=== PATIENT | female | born 1980 | race Caucasian/White ===

== ENCOUNTER 2016-06-30 16:00 | Observation (INO) | payer MEDICAID ==
[~2016-06-30] VITALS: Ht 167.6 cm; Wt 176.9 kg
--- NOTE | ~2016-06-30 | HP ---
ADMIT: 06/30/2016 RM/LOC: 509 [facility] MR#: [id number] [facility]#: [id number] [address] [address] INDRA DE LOS SANTOS [address] [place] [address] History and Physical SEX: F AGE: 35 : 1980 DATE OF SERVICE: CHIEF COMPLAINT/HISTORY OF PRESENT ILLNESS: This 35-year-old female is admitted to the hospital for increasing dyspnea. The patient is a long- standing asthmatic for which she takes Spiriva, DuoNeb twin jet nebulizer treatments, another inhaler, but no steroids. She has had an increasing cough lately. No hemoptysis. She has had worsening dyspnea. She had numerous hospital admissions for asthma and she is not a smoker. MEDICATIONS: Her other medications include: 1. Proventil inhaler. 2. Zyrtec. 3. Actos. 4. Celexa. PREVIOUS MEDICAL HISTORY: Generally, her health has been fair. She has had marked obesity. She also has type 2 diabetes mellitus for which she takes Actos. She has a history of depression. C-sections. SOCIAL HISTORY: The patient does not smoke. She works at [employer]. ALLERGIES: NO MEDICAL ALLERGIES. HOWEVER, SHE DOES NOT TOLERATE METFORMIN, IT CAUSES HER TO HAVE BLURRY VISION. REVIEW OF SYSTEMS: HEENT: The patient wears glasses. There is no history of diabetic retinopathy. CARDIORESPIRATORY: The patient has longstanding asthma, but no pneumonia. She has taken steroids in the past for her asthma. There has been no history of hypertension or chest pains. GI: No nausea, vomiting, bloody stools, or diarrhea. : No hematuria or dysuria. METABOLIC/ENDOCRINE: The patient has type 2 diabetes mellitus and takes Actos for this. The patient has morbid obesity. NEUROPSYCHIATRIC: The patient has a history of depression. PHYSICAL EXAMINATION: VITAL SIGNS: Initial blood pressure is 141/64, heart rate is 102 and regular, respirations 20, and temperature 98.2. GENERAL: The patient is a morbidly obese female who is alert, cooperative, oriented x3. HEENT: There is no cyanosis. The patient wears glasses. NECK: Veins are not distended. CHEST: Has occasional wheezing and occasional rales. No rhonchi are heard. HEART: Has an increased heart rate. No murmurs are heard. No evidence of cardiomegaly is present clinically. ADMIT: 06/30/2016 RM/LOC: 509 [facility] MR#: [id number] [address] [address] INDRA DE LOS SANTOS [address] [place] [address] History and Physical SEX: F AGE: 35 : 1980 ABDOMEN: Soft, nontender. Markedly protuberant. Liver is not enlarged. Spleen is not palpable. No abnormal masses are palpated. Femoral pulses are strong and equal bilaterally. GENITALIA: Deferred. EXTREMITIES: There is no cyanosis, clubbing, or edema. ASSESSMENT: 1. Acute on chronic asthma with hypoxemia. 2. Type 2 diabetes mellitus. 3. History of depression. PLAN: Intravenous steroids and increase her nebulizer treatments. Fernando Ching MD/ anne JOB #: [id number] CC: Fernando Ching, Attending Physician Abby Amado, Family Physician
[~2016-06-30 16:00] MED LIST: ACTOS DPS30 MG PO; ADVAIR DIS1 PUFF/DO1 IH; ASMANEX1 INH IH; DELTASONE DPS20 MG PO; DULERA 200/58.8 GM IH; DUONEB DPS3 ML IH; EFFEXOR XR37.5 M1 PO; MONTELUKAST SOD10 MG PO; PROVENTIL HFA6.7 GM IH; PULMICORT1 MG/2 ML IH; ZITHROMAX250 MG PO; ZYRTEC DPS10 MG PO
[2016-07-04] MEDS ORDERED: CELEXA DPS20 MG PO (14:19)
[2016-07-04] MEDS ORDERED: DELTASONE DPS10 MG PO (14:20)
[2016-07-04] MEDS ORDERED: CEFTIN DPS500 MG PO (14:20)
[2016-07-04] MEDS ORDERED: ZANTAC DPS150 MG PO (14:20)
--- NOTE | 2016-07-08 09:05 | ER ---
ADMIT: 06/30/2016 RM/LOC: 509 [facility] MR#: [id number] [id number] [place], [place] [address] IDNRA DE LOS SANTOS [address] [place] [address] Emergency Room Report SEX: F AGE: 35 : 1980 DATE: 06/30/2016 TIME: 1600 Please refer to my T-sheet for complete H and P. HISTORY OF PRESENT ILLNESS: Briefly, the patient is a 35-year-old who comes with short of breath, hypoxemia on exertion. Known asthma. PHYSICAL EXAMINATION: VITAL SIGNS: Blood pressure 141/69, pulse 102, respirations 20, temp 98.2, saturating 90% on room air at rest. GENERAL: No acute distress. HEENT: Grossly normal. LUNGS: With expiratory wheezes. HEART: Regular. ABDOMEN: Soft. SKIN: No rash. NEURO: She is alert, oriented, nonfocal. EMERGENCY ROOM COURSE: If she would move at all around here, she would drop her saturations in the 80s. Chest x-ray revealed no acute infiltrate. CBC was normal except hemoglobin 10.7. Chemistries normal except glucose 181. Lactate was 1.5. Blood cultures x2 were sent. We gave her a DuoNeb, Decadron [address] IV[address] I talked to Dr. Ching. I reviewed her chart. The patient has been admitted multiple times for asthmatic exacerbation and we will admit her. ASSESSMENT: 1. Acute asthma exacerbation. 2. Hypoxemia, especially with exertion. PLAN: Admit to the hospital. Jesus Burton MD/ anne JOB #: [id number] CC: Fernando Ching MD, Attending Physician Abby Amado, Family Physician
--- NOTE | 2016-07-08 11:55 | DS ---
ADMIT: 06/30/2016 RM/LOC: 509 [facility] MR#: [id number] [address] [address] INDRA DE LOS SANTOS [address] [place] [address] Discharge Summary SEX: F AGE: 35 : 1980 ADMISSION DATE: 06/30/2016 DISCHARGE DATE: 07/03/2016 HISTORY AND PHYSICAL: Please see the chart. LABORATORY AND X-RAY DATA: Please see the chart. CLINICAL COURSE: This 35-year-old female is admitted for an acute exacerbation of asthma. The patient has had increasing dyspnea. She had hypoxia in the emergency room. She had been taking her Proventil inhalers at home. She was placed on twin-jet nebulizer treatments with DuoNeb. She was also placed on intravenous steroids and and subsequently changed to prednisone. Over the next 2 days, the patient's wheezing improved. She was afebrile. Her white count improved. Her blood sugars were elevated, and she realizes that the steroids are one of the causes. He also was eating candy bars and had poor nutritional habits, and I feel her diabetes needs to be treated more aggressively. I have declined to do it yet because we are starting another antibiotic and tapering the steroids. She will see her provider, Abby Amado, in 3 days. She will be placed on Ceftin 250 mg b.i.d. for 3 days. She will be on Zantac 150 mg b.i.d. while she is on the prednisone. She will be given a tapering dose of prednisone at 10 mg t.i.d. for 2 days then 10 mg b.i.d. for 2 days then 10 mg once daily for 2 days then 1/2 of a 10 mg for 2 days and then discontinue. She can work her further changes with Abby Amado. FINAL DIAGNOSIS: 1. Acute exacerbation of asthma. 2. Poorly-controlled type 2 diabetes mellitus. 3. Morbid obesity. 4. Depression. Fernando Ching MD/ maryann JOB #: [id number] CC: Fernando Ching MD, Attending Physician Abby Amado, Family Physician
== END 2016-07-03 17:10 | disposition home or self-care (01) ==
LOC: ER 16:00 → 5MS 17:25
DX: J45.901 Unspecified asthma with (acute) exacerbation (principal); E11.65 Type 2 diabetes mellitus with hyperglycemia; F32.9 Major depressive disorder, single episode, unspecified; E66.01 Morbid (severe) obesity due to excess calories; Z68.44 Body mass index [BMI] 60.0-69.9, adult

== ENCOUNTER 2016-08-08 21:14 | Emergency (ER) | payer MEDICAID ==
[~2016-08-08 21:14] MED LIST changes: +CEFTIN DPS500 MG PO; +CELEXA DPS20 MG PO; +DELTASONE DPS10 MG PO; +ZANTAC DPS150 MG PO
--- NOTE | 2016-08-09 06:26 | ER ---
ADMIT: 08/08/2016 RM/LOC: ER [facility] MR#: [id number] [address] [address] INDRA DE LOS SANTOS [address] [place] [address] Emergency Room Report SEX: F AGE: 35 : 1980 DATE: 08/08/2016 The patient is a 35-year-old female complaining of exacerbation of asthma in the past 3 days, associated with allergic rhinitis. Denies any fevers, chills, nausea, or vomiting. Exam remarkable for nontoxic, afebrile, morbidly obese female. Audible wheezes noted throughout. Treated with 4 DuoNeb, Solu-Medrol, and magnesium with improvement. Home with prednisone 40 mg daily x5 days. Doxycycline 100 mg p.o. b.i.d. x7 days. Continue home nebulizer and MDI treatments. Follow up with Abby Amado as needed. Ceferino Bhatti MD/ anne JOB #: [id number] CC: Ceferino Bhatti MD, Attending Physician Abby Amado, Family Physician
--- NOTE | 2016-08-09 10:25 | NUR ---
Pt triggered as a high ED user. Attempted to contact patient. Left message.
== END 2016-08-08 23:26 | disposition home or self-care (01) ==
LOC: ER 21:14
DX: J44.1 Chronic obstructive pulmonary disease with (acute) exacerbation (principal); F17.200 Nicotine dependence, unspecified, uncomplicated; E11.9 Type 2 diabetes mellitus without complications; Z98.890 Other specified postprocedural states; Z79.84 Long term (current) use of oral hypoglycemic drugs; Z79.899 Other long term (current) drug therapy